=== PATIENT | female | born 1970 | race Caucasian/White ===

== ENCOUNTER 2021-06-13 16:03 | Emergency (ER) | payer OTHER, SELFPAY ==
[2021-06-13 16:04] VITALS: BP 128/68; PULSE 85; RESP 18; TEMP 37; O2SAT 98; BMI 28.8
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
[2021-06-13] MEDS: Naproxen 250 MG Tablet 500 MG PO (20:14)
== END 2021-06-13 20:26 | disposition home or self-care (01) ==
LOC: ED 20:14
PROVIDERS: Emergency Provider Emergency Medicine
DX: S90.31XA Contusion of right foot, initial encounter (principal); X58.XXXA Exposure to other specified factors, initial encounter; Y93.89 Activity, other specified; Y92.129 Unspecified place in nursing home as the place of occurrence of the external cause; Y99.0 Civilian activity done for income or pay
CPT/HCPCS: 73630; 99284

== ENCOUNTER 2024-01-11 12:31 | Observation (INO) | payer OTHER, SELFPAY ==
[2024-01-11] VITALS (10 sets, daily range): BP systolic 118–172; BP diastolic 61–101; PULSE 61–97; RESP 12–25; TEMP 36.6–36.7; O2SAT 80–99; BMI 33.5; BMI 32.3
--- NOTE | 2024-01-11 12:42 | CT_ITS ---
STUDY: CTA HEAD AND NECK WITH CONTRAST REASON FOR EXAM: Female, 53 years old. Dizziness RADIATION DOSAGE (If Supplied By Facility): CTDIvol = ( 28.12 ) mGy, DLP = ( 1378.46 ) mGycm TECHNIQUE: CT angiography was performed with a multi-detector CT scanner. Data acquisition was obtained from the skull base through the vertex following intravenous administration of IV 100mL Isovue-370. MIP images were reconstructed from the axial data set. Post-processing of the angiographic images was performed, with multiplanar reformation and 3D reconstruction. Individualized dose optimization techniques were used for this CT. COMPARISON: No relevant priors. FINDINGS: Normal bilateral petrous carotid arteries. Normal right cavernous carotid artery with a normal supraclinoid bifurcation. Normal left cavernous carotid artery with a normal supraclinoid bifurcation. Normal right A1 segments of the anterior cerebral artery. Normal left A1 segments of the anterior cerebral artery. Normal intact anterior communicating artery (ACOM). Normal bilateral A2 segments of the anterior cerebral arteries. Normal right M1 and M2 segments of the middle cerebral arteries, with a normal M1 bifurcation. Normal left M1 and M2 segments of the middle cerebral arteries, with a normal M1 bifurcation. Normal right posterior communicating artery (PCOM). Normal left posterior communicating artery (PCOM). Normal bilateral vertebral arteries. Normal basilar artery with a normal basilar bifurcation. The visualized bilateral superior cerebellar (SCA) arteries are normal. Normal bilateral P1, P2 and visualized P3 segments of the posterior cerebral arteries. There is no demonstrated aneurysm of the [place]. There is evidence of a decreased attenuation in the bilateral periventricular distribution. This most likely represents chronic ischemic changes. White matter disease should BE considered in the differential diagnosis as well. There is evidence of mediastinal lymphadenopathy. Small cervical lymph nodes are also present. AORTIC ARCH: There is minimal atherosclerotic calcific plaque formation of the aortic arch and great vessels arising from the aortic arch, without a hemodynamically significant stenosis. There is a normal origin of the brachiocephalic, left common carotid, and left subclavian arteries. RIGHT CAROTID ARTERIES: Normal right common carotid artery (CCA). Normal right common carotid bulb. There is minimal atherosclerotic plaque formation of the origin of the right internal carotid artery with less than 50% cross sectional diameter stenosis. Normal visualized cervical portion of the right internal carotid artery. Normal origin of the right external carotid artery (ECA). LEFT CAROTID ARTERIES: Normal left common carotid artery (CCA). Normal left common carotid bulb. Normal origin of the left internal carotid (ICA) artery without a hemodynamically significant stenosis. Normal visualized cervical portion of the left internal carotid artery. Normal origin of the left external carotid artery (ECA). VERTEBRAL ARTERIES: There is enhancement within the bilateral vertebral arteries with a small left vertebral artery, and a dominant right vertebral artery. CT/CTA Head AND Neck W/ Contrast IMPRESSION: Minimal plaque formation at the origin of the right internal carotid artery. Mediastinal lymphadenopathy. Multiple small lymph nodes in the cervical region. Electronically Signed: Jalen Hill MD at 14:16 EDT ,
--- NOTE | 2024-01-11 12:42 | EKG12_ITS ---
Test Reason : SYNCOPE Blood Pressure : / mmHG Vent. Rate : 092 BPM Atrial Rate : 092 BPM P-R Int : 128 ms QRS Dur : 090 ms QT Int : 364 ms P-R-T Axes : 069 080 042 degrees QTc Int : 450 ms Normal sinus rhythm Biatrial enlargement RSR' or QR pattern in V1 suggests right ventricular conduction delay Abnormal ECG Confirmed by Wali Costa ([id number]), business editor SANGITA HOFFMAN ([id number]) on 01/14/2024 6:36:26 AM Referred By: JESSICA Confirmed By:Wali Costa
--- NOTE | 2024-01-11 12:44 | EX.ED.DYSGE1 ---
HPI History of Present Illness Chief Complaint: Syncope Informant: patient Onset/Context/Timing Onset: Today Narrative Narrative: Patient presents with a near syncopal episode at work. She states she started feeling fatigued and tired. She started walking down the [place] to go check her blood pressure and got very lightheaded. She had a near syncopal episode while she was trying to check her blood pressure and staff members called EMS. Patient does not believe she ever completely lost consciousness. She denies headache, chest pain, or shortness of breath. She did have a TIA at [facility] last year and at that time she had problems with slurred speech. [facility] Medical History (Updated 01/11/24 @ 15:[address] Narcisa Burger MD) High cholesterol Hypertension TIA (transient ischemic attack) Home Medications albuterol sulfate 90 mcg/actuation aerosol inhaler 2 puff inhalation Q4H PRN PRN wheezing 01/11/24 [History Last Taken Unknown] amlodipine 10 mg tablet 10 mg PO DAILY 01/11/24 [History Last Taken Unknown] atorvastatin 40 mg tablet 40 mg PO QHS 01/11/24 [History Last Taken Unknown] Allergy/AdvReac Type Severity Reaction Status Date / Time Penicillins Allergy Angioedema Verified 01/11/24 12:33 Family History (Updated 01/11/24 @ 17:[address] Farshad Jo MD) Other Cancer Surgical History H/O angioplasty Social History Smoking Status: Current every day smoker tobacco type: cigarettes ROS ROS ED Constitutional Constitutional ED: Denies chills or fever(s) Eyes Eyes: Denies change in vision or discharge from eye(s) ENT ENT ED: Denies discharge from eye(s), rhinorrhea or sore throat Cardiovascular Cardiovascular: Denies chest pain or palpitations Respiratory/Chest Respiratory/Chest: Denies cough or dyspnea Gastrointestinal Gastrointestinal: Denies abdominal pain, nausea or vomiting Genitourinary Genitourinary ED: Denies dysuria Musculoskeletal Musculoskeletal: Denies back pain or extremity pain Integumentary Denies Abrasions or rash Neurologic Neurologic: Reports other Details: Lightheadedness ; Denies headache(s) or weakness Psychiatric Psychiatric: Denies anxiety or depression Allergic/Immunologic Allergic/Immunologic ED: Denies lip swelling or urticaria EXAM Physical Exam Const Vital Signs: 01/11/24 12:31 01/11/24 12:37 01/11/24 14:31 Temperature 98.1 F Temperature Source Oral Pulse Rate 97 61 Respiratory Rate 12 18 Respiratory Effort Normal Non-Labored Respiratory Pattern Normal Blood Pressure 140/68 H 154/89 H Blood Pressure Mean 92 110 Pulse Ox 95 96 Oxygen Delivery Method Room Air Room Air Oxygen Flow Rate (L/min) 01/11/24 14:54 01/11/24 15:12 01/11/24 15:23 Temperature Temperature Source Pulse Rate 96 Respiratory Rate 23 H Respiratory Effort Respiratory Pattern Blood Pressure 118/101 H Blood Pressure Mean 106 Pulse Ox 94 80 93 Oxygen Delivery Method Room Air Room Air Nasal Cannula Oxygen Flow Rate (L/min) 2 01/11/24 15:34 01/11/24 16:13 01/11/24 16:31 Temperature 98 F Temperature Source Pulse Rate 94 87 89 Respiratory Rate 18 25 H 17 Respiratory Effort Respiratory Pattern Blood Pressure 133/63 H 125/68 H 154/97 H Blood Pressure Mean 86 87 116 Pulse Ox 92 93 96 Oxygen Delivery Method Nasal Cannula Nasal Cannula Oxygen Flow Rate (L/min) 2 2 Positive well nourished and well developed General Appearance ED: well developed HEENT Reports moist mucous membranes Eyes EOMs intact bilaterally Chest Wall inspection of chest normal and palpation of chest normal Resp normal respiratory effort and clear to auscultation bilaterally Cardio regular rate and regular rhythm GI non-tender Palpation: soft Extremity normal to inspection Neuro oriented x3 and no sensory deficits noted Neuro Narrative: NIH equals 0 Motor Exam: strength 5/5 throughout Psych mental status grossly normal Skin no rashes or lesions noted MDM MDM MDM Narrative Medical decision making narrative: Patient placed on cardiac catheterization technologist. EKG obtained to evaluate for cardiac arrhythmia/ischemia. IV line initiated. Labwork obtained to evaluate for leukocytosis, anemia, and electrolyte derangement. CTA of the head and neck obtained to evaluate for any acute abnormalities. History & Record Review Discussion w/independent historian: Patient Lab Data Attestation: I reviewed the patient's lab results. Labs: Laboratory Results - last 24 hr 01/11/24 01/11/24 12:55 15:20 WBC 12.1 H RBC 4.54 Hgb 12.4 Hct 38.7 MCV 85.2 MCH 27.3 MCHC 32.0 RDW Std Deviation 47.0 H RDW Coeff of Flavio 15.3 H Plt Count 287 MPV 10.1 Immature Gran % (Auto) 0.300 Neut % (Auto) 63.2 Lymph % (Auto) 28.7 Ogle % (Auto) 5.9 Eos % (Auto) 1.2 Baso % (Auto) 0.7 Absolute Neuts (auto) 7.7 Absolute Lymphs (auto) 3.48 Nucleated RBC % 0 D-Dimer Quant (PE/DVT) 0.63 H* Sodium 140 Potassium 3.4 L Chloride 109 H Carbon Dioxide 27.0 Anion Gap 4 L BUN 17 Creatinine 0.76 Estim Creat Clear Calc 77.07 Est GFR (MDRD) Af Amer 102 Est GFR (MDRD) Non-Af 85 BUN/Creatinine Ratio 22.3 H Glucose 108 H Calcium 9.3 Total Bilirubin 0.30 Direct Bilirubin 0.11 AST 19 ALT 16 Alkaline Phosphatase 116 Troponin I High Sens 10 13 Total Protein 7.6 Albumin 3.5 Globulin 4.1 Radiography Diagnostic Testing: Clinical Impression(s) from Imaging Studies Head/Neck CTA 01/11/24 12:42 IMPRESSION: Minimal plaque formation at the origin of the right internal carotid artery. Mediastinal lymphadenopathy. Multiple small lymph nodes in the cervical region. Electronically Signed: Jlaen Hill MD at 14:16 EDT , Chest X-Ray 01/11/24 15:55 IMPRESSION: Mild central pulmonary and interstitial prominence. Electronically Signed: Odin Corey DO at 16:08 EDT , EKG Initial EKG: Attestation: I personally reviewed and interpreted this EKG as follows: Interpretation: Sinus Rhythm (Sinus at 92 with no acute ischemia.) Treatment and Re-Evaluation :: CBC reveals slightly elevated white count of 12.1 with normal differential. Hemoglobin is 12.4. Chemistry studies reveal slightly low potassium at 3.4 and this is replaced orally. Renal function is normal. Glucose is 108. LFTs are normal and initial troponin is 10. CTA of the head and neck reveals minimal plaque formation at the origin of the right internal carotid artery. Mediastinal lymphadenopathy is noted. Patient states that she had recently been told that she may have cancer, but after having extensive workups this was ruled out. She states she was told about enlarged lymph nodes in her chest at that time, but they thought it was all secondary to bronchitis. While awaiting her repeat troponin patient's oxygen level was noted to be low. It was initially thought to be secondary to the pulse ox environmental marketing representative her finger, however when a second machine was used to verify her O2 sats were reading in the low 80s on room air. She is placed on 2 L at this time and is satting in the low 90s. Patient states that her has been commented that she has been snoring more, but she has never been diagnosed with sleep apnea. Repeat troponin is obtained and is normal at 13, however her D-dimer is elevated at 0.63. Patient already received a contrast bolus for her CTA of the head and neck. I will obtain a chest x-ray at this time with plan to give her a dose of Lovenox and admit to observation given her hypoxia. She can likely receive a CTA of her chest in the morning to further evaluate for any evidence of pulmonary embolism. Chest x-ray per my interpretation was chronic changes with slight density noted in the left perihilum. Radiology interpretation is reviewed and feels this is consistent with central pulmonary and interstitial prominence. Addendum: Hospitalist saw the patient told him that she been having some intermittent right leg swelling recently. He asked that we obtain a venous ultrasound of the leg prior to admission. Venous ultrasound was obtained and reveals no evidence of DVT. Discharge Plan Dx/Rx/DC Orders Clinical Impression: Near syncope, Hypoxia Disposition Disposition: Acute Care Hospital [facility] Discharge Date/Time: 01/11/24 18:26
--- NOTE | 2024-01-11 12:51 | ED.RN ---
UNABLE TO SCAN NS AT THIS TIME D/T PHARMACY NEEDING TO VERIFY
[2024-01-11] MEDS: 0.9% Normal Saline (1000mL) 1,000 ML 150 ML IV (12:59)
[2024-01-11 13:01] LABS: Absolute Lymphocyte Count 3.48 X10^3/uL (0.83-4.51); Absolute Neutrophil Count 7.7 X10^3/uL (2.0-7.7); Basophil# 0.09 X10^3/uL; Basophil% 0.7 % (0-1); Eosinophil# 0.15 X10^3/uL; Eosinophils% 1.2 % (0-5); Hematocrit 38.7 % (37-47); Hemoglobin 12.4 g/dL (12.0-15.0); Lymphocyte # 3.48 X10^3/ul (0.83-4.51); Lymphocyte % 28.7 % (19-41); Mean Corpuscular Hgb 27.3 pg (27.0-32.0); Mean Corpuscular Volume 85.2 fL (81-99); Mean Platelet Vol. 10.1 fl (6.2-12.0); Monocyte# 0.72 X10^3/uL; Monocyte% 5.9 % (0-10); NRBC Flagged by Analyzer 0 % (0-5); Neutrophil # 7.66 X10^3/uL (2.7-7.7); Neutrophil % 63.2 % (47-70); Platelet Count 287 K/mm3 (150-450); RBC Distribution Width CV 15.3 % (11.6-14.6); Red Blood Count 4.54 M/mm3 (4.2-5.4); White Blood Count 12.1 K/mm3 (4.4-11.0)
[2024-01-11 13:20] LABS: AST(SGOT) 19 U/L (15-37); Alanine Aminotransfer ALT/SGPT 16 U/L (13-56); Albumin, Serum 3.5 g/dL (3.2-5.0); Alkaline Phosphatase 116 U/L (45-117); Anion Gap 4 (5-15); BUN 17 mg/dL (7-18); BUN/Creat Ratio 22.3 RATIO (10-20); Bilirubin, Direct 0.11 mg/dL (0.00-0.30); Calcium,Total 9.3 mg/dL (8.5-10.1); Chloride 109 mmol/L (98-107); Creatinine, Serum 0.76 mg/dL (0.55-1.02); EST Glomerular Filtration Rate 85 mL/min (>60); Est Glom Filt Rate - Afr Amer 102 mL/min (>60); Estimated Creatinine Clearance 77.07 ml/min; Globulin 4.1 g/dL (2.2-4.2); Glucose 108 mg/dL (74-106); Potassium 3.4 mmol/L (3.5-5.1); Protein, Total 7.6 g/dL (6.4-8.2); Sodium Level 140 mmol/L (136-145); Troponin-I HS (w/2H Reflex) 10 pg/mL (3.0-54.0)
[2024-01-11] MEDS: Potassium Chloride Oral Tablet 20 MEQ 40 MEQ PO (14:09)
[2024-01-11 14:59] LABS: Reflex Troponin-HS? (from REC) Y
[2024-01-11 15:46] LABS: D-Dimer Quantitative (DVT/PE) 0.63 FEU/ug/m (0.27-0.49); Troponin-I HS 13 pg/mL (3.0-54.0)
--- NOTE | 2024-01-11 15:55 | RAD_ITS ---
INDICATION: sob EXAMINATION/TECHNIQUE: X-RAY - XR Chest 1 View COMPARISON: FINDINGS: LINES/DEVICES: None. LUNGS: No consolidation, edema or effusion. Interstitial prominence. No pneumothorax. MEDIASTINUM AND CARDIOVASCULAR STRUCTURES: Cardiac silhouette not enlarged. Mild central pulmonary vascular prominence. Central airways and mediastinal contour are unremarkable. BONES AND SOFT TISSUES: Unremarkable. RAD/Chest 1 View (Portable) IMPRESSION: Mild central pulmonary and interstitial prominence. Electronically Signed: Odin Corey DO at 16:08 EDT ,
[2024-01-11] MEDS: Enoxaparin 80 MG/0.8 ML Syringe 70 MG SC (16:38)
--- NOTE | 2024-01-11 17:21 | PCM.HP.STD ---
HPI - General General Date of Admission: 01/11/24 HPI Narrative RODGER DEVINE, is a 53 F who presents to the hospital with an episode of near syncope and dizziness as well as hypertension with systolics in the 200s. 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 She was concerned that she could be having another TIA so EMS was called and at that time her blood pressure was over 200. She presented to the ED where a CTA of the head and neck was performed given her history of TIA and was unremarkable however in the the process of working her up she developed significant hypoxia down to 80% on room air and had to be placed on 2 L nasal cannula, she does not normally wear oxygen. She was found to have a normal troponin but her D-dimer was elevated to 0.63 however because she received contrast for the CTA of the head and neck she could not receive any for CTA of the chest currently. She was given a dose of therapeutic Lovenox while in the ER. She also states that last couple of days/weeks she has been noticing that her right leg with intermittently gets swollen in the foot and ankle area and then go away. She denies any calf pain. [facility] Medical History (Updated 01/11/24 @ 15:[address] Narcisa Burger MD) High cholesterol Hypertension TIA (transient ischemic attack) Home Medications albuterol sulfate 90 mcg/actuation aerosol inhaler 2 puff inhalation Q4H PRN PRN wheezing 01/11/24 [History Last Taken Unknown] amlodipine 10 mg tablet 10 mg PO DAILY 01/11/24 [History Last Taken Unknown] atorvastatin 40 mg tablet 40 mg PO QHS 01/11/24 [History Last Taken Unknown] Allergy/AdvReac Type Severity Reaction Status Date / Time Penicillins Allergy Angioedema Verified 01/11/24 12:33 Family History (Updated 01/11/24 @ 17:[address] Farshad Jo MD) Other Cancer Surgical History H/O angioplasty Social History Smoking Status: Unknown if ever smoked ROS Constitutional Constitutional: Denies chills, fatigue, fever(s) or malaise Eyes Eyes: Denies blurry vision ENT HEENT: Denies headache(s) or nasal discharge Cardiovascular Cardiovascular: Reports dyspnea on exertion, lightheadedness and syncope; Denies chest pain Respiratory/Chest Respiratory/Chest: Denies cough, shortness of breath at rest or shortness of breath with exertion Gastrointestinal Gastrointestinal: Denies constipation, diarrhea, nausea or vomiting Genitourinary Genitourinary: Denies dysuria Neurologic Neurologic: Denies focal weakness, numbness or tremor(s) Psychiatric Psychiatric: Denies anxiety or depression Vital Signs Vital Signs Vital Signs: 01/11/24 12:31 01/11/24 12:37 01/11/24 14:31 Temperature 98.1 F Temperature Source Oral Pulse Rate 97 61 Respiratory Rate 12 18 Respiratory Effort Normal Non-Labored Respiratory Pattern Normal Blood Pressure 140/68 H 154/89 H Blood Pressure Mean 92 110 Pulse Ox 95 96 Oxygen Delivery Method Room Air Room Air Oxygen Flow Rate (L/min) 01/11/24 14:54 01/11/24 15:12 01/11/24 15:23 Temperature Temperature Source Pulse Rate 96 Respiratory Rate 23 H Respiratory Effort Respiratory Pattern Blood Pressure 118/101 H Blood Pressure Mean 106 Pulse Ox 94 80 93 Oxygen Delivery Method Room Air Room Air Nasal Cannula Oxygen Flow Rate (L/min) 2 01/11/24 15:34 01/11/24 16:13 01/11/24 16:31 Temperature 98 F Temperature Source Pulse Rate 94 87 89 Respiratory Rate 18 25 H 17 Respiratory Effort Respiratory Pattern Blood Pressure 133/63 H 125/68 H 154/97 H Blood Pressure Mean 86 87 116 Pulse Ox 92 93 96 Oxygen Delivery Method Nasal Cannula Nasal Cannula Oxygen Flow Rate (L/min) 2 2 Weight Weight: 160 lb 4.417 oz Body Mass Index (BMI) 33.5 Physical Exam Narrative General: Alert, Oriented x3, Cooperative, No apparent distress HEENT: Atraumatic, PERRLA, EOMI, Normocephalic Oral: Moist Mucosa Neck: Supple, No JVD Lungs: Diminished, Normal air movement, No rhonchi, No wheeze, No rales Cardiovascular: Regular rate, Regular Rhythm, Normal S1, Normal S2, No murmurs Abdomen: Soft, Non Tender, Non-Distended, No Hepato-splenomegaly Extremities: No edema, Capillary Refill Less than 3 Seconds Skin: No rashes, No breakdown Musculoskeletal: No Tenderness to Palpation of Joints or Extremities Neurological: No focal neurological deficits, Motor Exam 5/5 strength throughout, Sensory exam intact to light touch and pain Psych/Mental Status: Normal Affect, Appropriate Results Lab / Micro Data 01/11/24 12:55 01/11/24 12:55 Labs: Laboratory Results - last 24 hr 01/11/24 12:55: WBC 12.1 H, RBC 4.54, Hgb 12.4, Hct 38.7, MCV 85.2, MCH 27.3, MCHC 32.0, RDW Std Deviation 47.0 H, RDW Coeff of Flavio 15.3 H, Plt Count 287, MPV 10.1, Immature Gran % (Auto) 0.300, Neut % (Auto) 63.2, Lymph % (Auto) 28.7, [place] % (Auto) 5.9, Eos % (Auto) 1.2, Baso % (Auto) 0.7, Absolute Neuts (auto) 7.7, Absolute Lymphs (auto) 3.48, Nucleated RBC % 0, Sodium 140, Potassium 3.4 L, Chloride 109 H, Carbon Dioxide 27.0, Anion Gap 4 L, BUN 17, Creatinine 0.76, Estim Creat Clear Calc 77.07, Est GFR (MDRD) Af Amer 102, Est GFR (MDRD) Non-Af 85, BUN/Creatinine Ratio 22.3 H, Glucose 108 H, Calcium 9.3, Total Bilirubin 0.30, Direct Bilirubin 0.11, AST 19, ALT 16, Alkaline Phosphatase 116, Troponin I High Sens 10, Total Protein 7.6, Albumin 3.5, Globulin 4.1 01/11/24 15:20: D-Dimer Quant (PE/DVT) 0.63 H*, Troponin I High Sens 13 Imaging Radiology Impression Head/Neck CTA 01/11/24 12:42 IMPRESSION: Minimal plaque formation at the origin of the right internal carotid artery. Mediastinal lymphadenopathy. Multiple small lymph nodes in the cervical region. Electronically Signed: Jalen Hill MD at 14:16 EDT , Chest X-Ray 01/11/24 15:55 IMPRESSION: Mild central pulmonary and interstitial prominence. Electronically Signed: Odintami Corey DO at 16:08 EDT , Assessment & Plan Assessment/Plan (1) Near syncope: (2) Hypoxia: PLAN: Plan 1. Near syncope with hypoxia/mediastinal lymphadenopathy ?Will obtain a CT of the chest tomorrow morning to rule out PE in the meantime we will continue on therapeutic Lovenox ? Will hold off on an MRI as her initial TIA was speech related, dizziness is an uncommon finding for an uncommon posterior stroke ? Continue with nasal cannula, she does have history of wheezing likely consistent with either asthma or COPD though she states that she has never been diagnosed, will continue with her albuterol ? She states that she was recently worked up for her lymphadenopathy that is seen in her chest initially she was told it was cancer however after other diagnostic workup that did not include a biopsy she was told that it was due to bronchitis. Her bronchitis has resolved however on cursory examination of the CT of the head and neck he can still see mediastinal lymphadenopathy. Hopefully we have a more clarifying picture with a CT of the chest in the morning ? Given the elevated D-dimer and her intermittent swelling of her right lower extremity, will obtain a Doppler ultrasound in the ER 2. Essential HTN/HLD/angioplasty of aorta at 14 years old/history of TIA ? Blood pressures are currently stable ? Can resume her home Norvasc ? Continue with Lipitor ? Monitor make adjustments as necessary DVT: Therapeutic Lovenox 76 minutes was spent on direct patient care, including documentation as well as chart review and collaboration with colleagues
--- NOTE | 2024-01-11 17:49 | US_ITS ---
INDICATION: right leg swelling EXAMINATION: Ultrasound US Venous Duplex RLE Unilat / Limited TECHNIQUE: Workman scale, pulse wave, and color flow Doppler imaging was performed of the lower extremity venous system. The bilateral greater saphenous, common femoral, femoral, and popliteal veins were interrogated. COMPARISON: FINDINGS: There is normal compression, augmentation, and signal throughout the visualized deep lower extremity veins. No mass or fluid collection. US/Venous Duplex Imag/Limited/Uni IMPRESSION: No sonographic evidence of deep venous thrombosis. Electronically Signed: Odin Corey DO at 18:55 EDT Reading Location ID and State: [facility] / [place] Tel [phone], Service support ,
[2024-01-11] MEDS: Atorvastatin Calcium 40 MG Tablet PO (20:16)
[2024-01-12] MEDS: Enoxaparin 80 MG/0.8 ML Syringe 70 MG SC ×2 (00:55→08:47)
[2024-01-12 02:45] VITALS: BP 133/65; PULSE 85; RESP 18; TEMP 36.6; O2SAT 95
[2024-01-12 04:58] LABS: Absolute Lymphocyte Count 5.36 X10^3/uL (0.83-4.51); Absolute Neutrophil Count 8.5 X10^3/uL (2.0-7.7); Basophil# 0.13 X10^3/uL; Basophil% 0.9 % (0-1); Eosinophil# 0.28 X10^3/uL; Eosinophils% 1.8 % (0-5); Hematocrit 37.4 % (37-47); Hemoglobin 11.6 g/dL (12.0-15.0); Lymphocyte # 5.36 X10^3/ul (0.83-4.51); Lymphocyte % 35.2 % (19-41); Mean Corpuscular Volume 87.2 fL (81-99); Mean Platelet Vol. 10.6 fl (6.2-12.0); Monocyte# 0.95 X10^3/uL; Monocyte% 6.2 % (0-10); NRBC Flagged by Analyzer 0 % (0-5); Neutrophil # 8.45 X10^3/uL (2.7-7.7); Neutrophil % 55.5 % (47-70); POSITIVE DIFFERENTIAL YES; Platelet Count 287 K/mm3 (150-450); RBC Distribution Width CV 15.5 % (11.6-14.6); Red Blood Count 4.29 M/mm3 (4.2-5.4); White Blood Count 15.2 K/mm3 (4.4-11.0)
[2024-01-12 05:07] LABS: Differential Indicated SCAN CRITERIA MET
[2024-01-12 05:22] LABS: Anion Gap 5 (5-15); BUN 19 mg/dL (7-18); BUN/Creat Ratio 28.1 RATIO (10-20); Calcium,Total 8.9 mg/dL (8.5-10.1); Chloride 110 mmol/L (98-107); Creatinine, Serum 0.68 mg/dL (0.55-1.02); EST Glomerular Filtration Rate 97 mL/min (>60); Est Glom Filt Rate - Afr Amer 117 mL/min (>60); Estimated Creatinine Clearance 84.67 ml/min; Glucose 94 mg/dL (74-106); Potassium 3.7 mmol/L (3.5-5.1); Sodium Level 138 mmol/L (136-145)
[2024-01-12 05:34] LABS: Differential Comment SCANNED
--- NOTE | 2024-01-12 08:00 | CT_ITS ---
STUDY: CTA CHEST REASON FOR EXAM: Female, 53 years old. R/o PE RADIATION DOSAGE (If Supplied By Facility): CTDIvol = ( 14.89 ) mGy, DLP = ( 459.45 ) mGycm TECHNIQUE: The examination was performed with the intravenous administration of IV 100mL Isovue-370. Post-processing of the angiographic images was performed, with multiplanar reformation and 3D reconstruction. Individualized dose optimization techniques were used for this CT. COMPARISON: Chest x-ray 01/11/2024 FINDINGS: Normal enhancement of the main pulmonary artery and right and left pulmonary arteries. Normal enhancement of the bilateral peripheral pulmonary arteries. There is no demonstrated pulmonary embolism. Normal thoracic aorta and visualized great vessels. There is no demonstrated aortic dissection. Normal heart and pericardium. Confluent mediastinal and bilateral hilar lymphadenopathy. Aorticopulmonary window lymphadenopathy measures 3.0 x 3.5 cm. Right paratracheal lymphadenopathy measures 1.5 x 2.5 cm. Subcarinal lymphadenopathy measures 2.0 x 2.5 cm. Normal hilar regions. Normal visualized trachea and bronchi. The lungs are well expanded. Normal pulmonary parenchyma. Small bilateral pleural effusions with some bibasilar subsegmental atelectasis. Normal chest wall structures. Normal osseous structures. Normal visualized upper abdomen. CT/CTA Chest W/WO Contrast IMPRESSION: 1. No CT evidence of pulmonary embolism. 2. Confluent mediastinal and bilateral hilar lymphadenopathy possibly from sarcoidosis, lymphoma or metastatic disease. 3. Small bilateral pleural effusions with some subsegmental bibasilar atelectasis. Electronically Signed: Helio Rangel MD at 9:06 EDT ,
[2024-01-12 08:44] VITALS: BP 136/72; PULSE 78; RESP 17; TEMP 36.6; O2SAT 99
[2024-01-12] MEDS: amLODIPine 10 MG Tablet PO (08:47)
--- NOTE | 2024-01-12 10:01 | DCINST_ITS ---
Discharge Instructions Diet Discharge Diet: No restrictions Activity Discharge Activity: Return to Normal Activity Return to work on:: 01/14/24 Weight Bearing Status: Full weight bearing Follow Up Care Test Results: Test results from this visit will be discussed in further detail at your follow- up appointment, if applicable. Discharge Plan Admission Admit Date/Time: 01/11/24 17:16 Primary Reason for Your Visit: presyncope Attending Provider: Rip Sibley Primary Care Provider: ASHLYN VARMA CNP Consulting Providers: Farshad Jo Instructions Additional Instructions / Restrictions: Follow-up with your primary care physician as directed, call the office to see when they want you to follow-up Discharge Orders/Prescriptions Prescriptions: Continued atorvastatin 40 mg tablet 40 mg PO QHS amlodipine 10 mg tablet 10 mg PO DAILY albuterol sulfate 90 mcg/actuation HFA aerosol inhaler 2 puff inhalation Q4H PRN PRN (Reason: wheezing) Referrals / Follow Up: TO[facility]A DOW [Other] ASHLYN VARMA CNP [Other] Disposition Disposition (needs filled in before D/C Order can be placed): Home, Self Care
--- NOTE | 2024-01-12 10:06 | DS.PCM_ITS ---
Providers Date of Admission: 01/11/24 Date of Discharge: 01/12/24 Primary Care Physician: ASHLYN VARMA Reason For Visit: HYPOXIA Diagnosis Discharge Diagnosis (1) Near syncope: Status: Acute Code(s): R55 - Syncope and collapse (2) Hypoxia: Status: Acute Code(s): R09.02 - Hypoxemia Plan 1. Presyncope #2 hypoxia-etiology unclear #3 essential hypertension Medications at Discharge Home Medications albuterol sulfate 90 mcg/actuation aerosol inhaler 2 puff inhalation Q4H PRN PRN wheezing 01/11/24 amlodipine 10 mg tablet 10 mg PO DAILY 01/11/24 atorvastatin 40 mg tablet 40 mg PO QHS 01/11/24 Hospital Course Operations None Procedures None Summary of Care Provided Minutes Spent on Discharge: 30 Hospital Course: This 53-year-old white female was seen in the emergency room at [facility] after an episode of near syncope and dizziness at work, she checked her blood pressure and the systolic reading was 200. She did not actually have a syncopal episode but felt like she was going to pass out. Workup in the emergency room revealed a slightly elevated white blood cell count, patient's potassium was slightly low at 3.4, D-dimer was elevated at 0.63. Patient had a head and neck CTA which was unremarkable other than minimal plaque formation at the origin of the right internal carotid artery and mediastinal lymphadenopathy with multiple small lymph nodes in cervical region. Chest x-ray showed mild central pulmonary and interstitial prominence but no acute process. Patient was placed in observation status on PCU, venous duplex was performed which showed no evidence of DVT, the following day she had a CTA of her chest which did not show evidence of pulmonary embolism, there was noted to be mediastinal and bilateral hilar lymphadenopathy possibly from sarcoidosis lymphoma or metastatic disease. There is small bilateral pleural effusions noted with some bibasilar atelectasis. On 01/12/2024, patient was seen and examined: On examination she appeared in good health and spirits, she does not appear to be in any distress. Vital signs as documented. Skin warm and dry and without overt rashes. Neck without JVD, thyroid appears normal, trachea is midline, neck is supple. Lungs clear, normal air movement was noted. Heart exam notable for regular rhythm, normal sounds and absence of murmurs, rubs or gallops. Abdomen unremarkable and without evidence of organomegaly, masses, or abdominal aortic enlargement, bowel sounds are present in all 4 quadrants, no abdominal tenderness was noted. Extremities nonedematous, no cyanosis was noted, no clubbing was noted. Neuro: Cranial nerves II through XII are grossly intact, no focal motor deficits were noted, sensation to light touch and pinprick is intact, motor exam 5/5 throughout. Psych: Patient is alert and oriented x3, she does not appear anxious or depressed, she does not appear agitated. Patient appears stable for discharge on 01/12/2024, she was instructed to follow- up with her family physician, I discussed the CTA findings with her and her prior to her discharge, because of the lymphadenopathy I feel that she should probably get a repeat CT of the chest with contrast for follow-up within 2-3 months. Patient and the patient's relate to the fact that she has had lymphadenopathy before on a previous CT and it has resolved on its own. Weight / BMI Weight Weight: 70.307 kg Body Mass Index (BMI) 32.3 ABG / Lab / Microbiology Data 01/12/24 03:28 01/12/24 03:28 Laboratory: Laboratory Results - last 24 hr 01/11/24 12:55: WBC 12.1 H, RBC 4.54, Hgb 12.4, Hct 38.7, MCV 85.2, MCH 27.3, MCHC 32.0, RDW Std Deviation 47.0 H, RDW Coeff of Flavio 15.3 H, Plt Count 287, MPV 10.1, Immature Gran % (Auto) 0.300, Neut % (Auto) 63.2, Lymph % (Auto) 28.7, [place] % (Auto) 5.9, Eos % (Auto) 1.2, Baso % (Auto) 0.7, Absolute Neuts (auto) 7 .7, Absolute Lymphs (auto) 3.48, Nucleated RBC % 0, Sodium 140, Potassium 3.4 L, Chloride 109 H, Carbon Dioxide 27.0, Anion Gap 4 L, BUN 17, Creatinine 0.76, Estim Creat Clear Calc 77.07, Est GFR (MDRD) Af Amer 102, Est GFR (MDRD) Non-Af 85, BUN/Creatinine Ratio 22.3 H, Glucose 108 H, Calcium 9.3, Total Bilirubin 0.30, Direct Bilirubin 0.11, AST 19, ALT 16, Alkaline Phosphatase 116, Troponin I High Sens 10, Total Protein 7.6, Albumin 3.5, Globulin 4.1 01/11/24 15:20: D-Dimer Quant (PE/DVT) 0.63 H*, Troponin I High Sens 13 01/12/24 03:28: WBC 15.2 H, RBC 4.29, Hgb 11.6 L, Hct 37.4, MCV 87.2, MCH 27.0, MCHC 31.0 L, RDW Std Deviation 49.0 H, RDW Coeff of Flavio 15.5 H, Plt Count 287, MPV 10.6, Immature Gran % (Auto) 0.400, Neut % (Auto) 55.5, Lymph % (Auto) 35.2, [place] % (Auto) 6.2, Eos % (Auto) 1.8, Baso % (Auto) 0.9, Absolute Neuts (auto) 8.5 H, Absolute Lymphs (auto) 5.36 H, Nucleated RBC % 0, Differential Comment SCANNED, Sodium 138, Potassium 3.7, Chloride 110 H, Carbon Dioxide 23.0, Anion Gap 5, BUN 19 H, Creatinine 0.68, Estim Creat Clear Calc 84.67, Est GFR (MDRD) Af Amer 117, Est GFR (MDRD) Non-Af 97, BUN/Creatinine Ratio 28.1 H, Glucose 94, Calcium 8.9 Radiography Diagnostic Testing: Radiology Impression Head/Neck CTA 01/11/24 12:42 IMPRESSION: Minimal plaque formation at the origin of the right internal carotid artery. Mediastinal lymphadenopathy. Multiple small lymph nodes in the cervical region. Electronically Signed: Jalen Hill MD at 14:16 EDT , Chest X-Ray 01/11/24 15:55 IMPRESSION: Mild central pulmonary and interstitial prominence. Electronically Signed: Odin Corey DO at 16:08 EDT , Venous Duplex 01/11/24 17:49 IMPRESSION: No sonographic evidence of deep venous thrombosis. Electronically Signed: Odin Corey DO at 18:55 EDT , Chest CTA 01/12/24 08:00 IMPRESSION: 1. No CT evidence of pulmonary embolism. 2. Confluent mediastinal and bilateral hilar lymphadenopathy possibly from sarcoidosis, lymphoma or metastatic disease. 3. Small bilateral pleural effusions with some subsegmental bibasilar atelectasis. Electronically Signed: Helio Rangel MD at 9:06 EDT , D/C Instructions Discharge Diet: No restrictions Return to work on: 01/14/24 Weight Bearing Status: Full weight bearing Meaningful Use Info Meaningful Use Diagnoses (Choose all that apply): None applicable Discharge Plan Admission Admit Date/Time: 01/11/24 17:16 Primary Reason for Your Visit: presyncope Attending Provider: Rip Sibley Primary Care Provider: ASHLYN VARMA CNP Consulting Providers: Farshad Jo Instructions Additional Instructions / Restrictions: Follow-up with your primary care physician as directed, call the office to see when they want you to follow-up Discharge Orders/Prescriptions Prescriptions: Continued atorvastatin 40 mg tablet 40 mg PO QHS amlodipine 10 mg tablet 10 mg PO DAILY albuterol sulfate 90 mcg/actuation HFA aerosol inhaler 2 puff inhalation Q4H PRN PRN (Reason: wheezing) Referrals / Follow Up: TO[facility]A DOW [Other] ASHLYN VARMA CNP [Other] Disposition Disposition (needs filled in before D/C Order can be placed): Home, Self Care Charges/Coding Visit Charges Inpatient E&M: 52730 Disch Hosp
== END 2024-01-12 10:06 | disposition home or self-care (01) ==
LOC: ED 13:14 → PCU 17:31
PROVIDERS: Admitting Provider Family Medicine; Emergency Provider Emergency Medicine; Visit Provider Internal Medicine
DX: R55 Syncope and collapse (principal); R09.02 Hypoxemia; I10 Essential (primary) hypertension; E78.00 Pure hypercholesterolemia, unspecified; F17.210 Nicotine dependence, cigarettes, uncomplicated; I69.898 Other sequelae of other cerebrovascular disease; Z79.899 Other long term (current) drug therapy; M79.89 Other specified soft tissue disorders
CPT/HCPCS: 36415; 70496; 70498; 71045; 71275; 80048; 80076; 84484; 85025; 85379; 93005; 93971; 94668; 96360; 96361; 96372; 99221; 99285; J7030; Q9967; G0378